=== PATIENT | female | born 1985 | race African-American/Black ===

== ENCOUNTER 2020-08-20 17:09 | Emergency (ER) | payer OTHER ==
[~2020-08-20] VITALS: Ht 157.5 cm; Wt 57.0 kg
[2020-08-20 20:44] LABS: BASOPHILS % 0.5 % (0.0-2.0); EOSINOPHILS % 0.9 % (0.0-5.0); HEMATOCRIT. 39.4 % (36.0-48.0); HEMOGLOBIN. 13.3 g/dL (12.0-16.0); LYMPHOCYTES % 23.3 % (20.0-50.0); MEAN CORPUSCULAR HEMOGLOBIN 29.7 pg (28.0-32.0); MEAN CORPUSCULAR VOLUME 87.8 fL (81.0-99.0); MONOCYTES % 7.9 % (2.0-8.0); NEUTROPHILS % 67.4 % (40.0-76.0); PLATELET 250 x1000/uL (130-400); RED BLOOD CELL COUNT 4.49 mill/uL (4.2-5.4); RED CELL DISTRIBUTION WIDTH 12.8 % (11.6-14.6)
[2020-08-20 20:57] LABS: CHLORIDE 105 mEq/L (98-107)
[2020-08-20 21:22] LABS: B-HCG QUANTITATIVE 91458 mIU/mL (<3)
[2020-08-20 22:26] VITALS: BP 111/76
== END 2020-08-20 22:33 | disposition home or self-care (01) ==
LOC: ER 17:33
DX: O46.91 Antepartum hemorrhage, unspecified, first trimester (principal); Z3A.01 Less than 8 weeks gestation of pregnancy
CPT/HCPCS: 36415; 76801; 80053; 81025; 84702; 85025; 86850; 86900; 99284